=== PATIENT | female | born 1980 | race African-American/Black ===

== ENCOUNTER 2019-02-17 01:31 | Inpatient (IN) ==
[2019-02-17] MEDS ORDERED: INFLUENZA VIRUS VACCINE 0.5 ML SYRINGE IM ONE (03:10)
[2019-02-17] MEDS ORDERED: guaiFENesin/DM ER 600-30 MG TABLET PO PRN (03:37)
[2019-02-17] MEDS: SODIUM CHLORIDE 0.9% 1,000 ML IV SCH (05:09)
[2019-02-17] MEDS ORDERED: traZODone 50 MG TABLET PO PRN (05:21)
[2019-02-17] MEDS ORDERED: DEXTROSE 50% 25 GM/50 ML VIAL IV PRN (05:25)
[2019-02-17] MEDS ORDERED: GLUCAGON 1 MG VIAL IM PRN (05:25)
[2019-02-17 05:31] LABS: Apearance,Urine CLEAR (Clear); Bacteria,Urine Occasional /HPF (Few); Bilirubin,Urine Negative (Negative); Blood, Urine Negative (Negative); Glucose,Urine (UA) Negative (Negative); Ketones,Urine Negative (Negative); Mucus,Urine Occasional /LPF (Occasional); Nitrite,Urine Negative (Negative); Protein,Urine Negative; RBC,Urine 1 /HPF (0-4); Squamous Epithelial Cell,Urine Occasional /HPF (0-10); Urine Color Straw (Yellow); Urine Specific Gravity 1.006 (1.001-1.035); Urine Urobilinogen < 2.0 EU/DL (0.2-1.0); WBC,Urine <1 /HPF (0-6)
[2019-02-17] MEDS ORDERED: LORazepam 1 MG TABLET PO ONE (06:15)
[2019-02-17] MEDS: cefTRIAXone 1,000 MG in SYRINGE 1 EACH IV SCH (06:30)
[2019-02-17] MEDS: DOXYCYCLINE HYCLATE INJ 100 MG in SODIUM CHLORIDE 0.9% 100 ML IV SCH ×2 (06:35→17:23)
[2019-02-17 07:10] LABS: Basophils # 0.4 10*3/uL (0.0-0.2); Basophils % 1.6 % (0.0-0.8); Eosinophils # 0.4 10*3/uL (0.0-0.87); Eosinophils % 1.6 % (0.00-10.9); Hematocrit 36.3 VOL% (35.7-47.0); Hemoglobin 11.5 GM/DL (12.0-16.0); Lymphocytes # 3.8 10*3/uL (1.4-4.0); Lymphocytes % 14.4 % (21.3-54.2); Mean Corpuscular HGB Conc 31.7 GM/DL (32-36); Mean Platelet Volume 11.5 FL (9.6-12.0); Monocytes % 8.2 % (1.7-12.7); NRBC # 2.03 10*3/uL; Neutrophils % 57.2 % (38.7-73.9); Platelet Count 243 T/CUMM (130-400); Red Blood Count 4.08 MC/CUMM (3.8-5.5); Red Cell Distribution Width 18.4 % (9.3-17.3); White Blood Count 26.4 T/CUMM (4-12)
[2019-02-17] MEDS: ALBUTEROL/IPRATROPIUM 3 ML NEB RESP TX SCH ×3 (07:15→19:23)
[2019-02-17 07:45] LABS: Troponin I < 0.015 NG/ML (0.00-0.045)
[2019-02-17] MEDS ORDERED: ENOXAPARIN 40 MG/0.4 ML SYRINGE SUBCUT SCH (08:00)
[2019-02-17 08:09] LABS: Band Neutrophils 5 % (0-10); Eosinophils 1 % (0-10); Lymphocytes 17 % (20-55); Metamyelocytes 4 %; Myelocytes 3 %; Nucleated Red Blood Cells 4 (0-5); Segmented Neutrophils 64 % (50-85); Total Cells Counted 100
[2019-02-17 08:10] LABS: Hypochromasia 1+; Microcytosis 1+; Polychromasia Slight
[2019-02-17 08:11] LABS: Atypical Lymphocytes Few
[2019-02-17] MEDS: PANTOPRAZOLE 40 MG TABLET PO SCH (08:34)
[2019-02-17] MEDS: BENZTROPINE 1 MG TABLET PO SCH (08:34)
[2019-02-17] MEDS: amLODIPine 10 MG TABLET PO SCH (08:34)
[2019-02-17] MEDS: cloNIDine 0.1 MG TABLET PO SCH ×2 (08:34→20:18)
[2019-02-17] MEDS: INSULIN LISPRO 100 UNIT/ML SUBCUT SCH ×4 (08:35→20:18)
[2019-02-17 09:24] LABS: Alanine Aminotransferase 54 U/L (13-56); Albumin 3.4 G/DL (3.4-5.0); Alkaline Phosphatase 182 U/L (45-117); Aspartate Amino Transferase 50 U/L (0-37); Bilirubin,Total < 0.39 MG/DL (0.2-1.0); Blood Urea Nitrogen 10 MG/DL (7-18); Calcium 8.7 MG/DL (8.5-10.1); Estimated Glom Filtration Rate 188 ML/MIN; Glucose 288 MG/DL (74-106); Osmolality,Calculated 284.7 MOS/KG (273-304); Total Protein 7.6 G/DL (6.4-8.3)
[2019-02-17] MEDS ORDERED: APIXABAN 5 MG TABLET PO ONE (12:01)
[2019-02-17 13:18] LABS: Troponin I < 0.015 NG/ML (0.00-0.045)
[2019-02-17] MEDS: ONDANSETRON 4 MG/2 ML VIAL IV PRN (15:44)
[2019-02-17 20:12] LABS: Troponin I < 0.015 NG/ML (0.00-0.045)
[2019-02-17] MEDS ORDERED: LURASIDONE 60 MG TABLET PO SCH (21:00)
[2019-02-17] MEDS: LURASIDONE 40 MG TABLET PO SCH (22:51)
[2019-02-18] MEDS: ALBUTEROL/IPRATROPIUM 3 ML NEB RESP TX SCH ×4 (01:30→18:59)
[2019-02-18] MEDS ORDERED: cloNIDine 0.1 MG TABLET PO ONE (04:00)
[2019-02-18] MEDS: LOSARTAN 50 MG TABLET PO SCH (04:21)
[2019-02-18] MEDS: SODIUM CHLORIDE 0.9% 1,000 ML IV SCH ×2 (04:22→13:37)
[2019-02-18 05:24] LABS: Basophils # 0.1 10*3/uL (0.0-0.2); Basophils % 0.3 % (0.0-0.8); Eosinophils # 0.2 10*3/uL (0.0-0.87); Eosinophils % 0.8 % (0.00-10.9); Hematocrit 33.9 VOL% (35.7-47.0); Hemoglobin 10.4 GM/DL (12.0-16.0); Immature Granulocytes % 16.4 %; Immature Granulocytes Absolute 3.94 #; Lymphocytes # 3.6 10*3/uL (1.4-4.0); Mean Corpuscular HGB Conc 30.7 GM/DL (32-36); Mean Corpuscular Volume 90.2 FL (87-102); Mean Platelet Volume 9.7 FL (9.6-12.0); Monocytes % 9.1 % (1.7-12.7); NRBC # 1.12 10*3/uL; Neutrophils % 58.4 % (38.7-73.9); Platelet Count 362 T/CUMM (130-400); Red Blood Count 3.76 MC/CUMM (3.8-5.5); Red Cell Distribution Width 18.8 % (9.3-17.3)
[2019-02-18] MEDS: cefTRIAXone 1,000 MG in SYRINGE 1 EACH IV SCH (05:29)
[2019-02-18] MEDS: DOXYCYCLINE HYCLATE INJ 100 MG in SODIUM CHLORIDE 0.9% 100 ML IV SCH ×2 (05:31→18:28)
[2019-02-18 05:57] LABS: Alanine Aminotransferase 50 U/L (13-56); Alkaline Phosphatase 151 U/L (45-117); Aspartate Amino Transferase 40 U/L (0-37); Bilirubin,Total < 0.39 MG/DL (0.2-1.0); Blood Urea Nitrogen 10 MG/DL (7-18); Calcium 8.8 MG/DL (8.5-10.1); Estimated Glom Filtration Rate 188 ML/MIN; Glucose 244 MG/DL (74-106); Osmolality,Calculated 285.4 MOS/KG (273-304); Total Protein 7.3 G/DL (6.4-8.3)
[2019-02-18 06:09] LABS: Band Neutrophils 9 % (0-10); Eosinophils 1 % (0-10); Lymphocytes 21 % (20-55); Myelocytes 3 %; Nucleated Red Blood Cells 7 (0-5); Segmented Neutrophils 61 % (50-85); Total Cells Counted 100
[2019-02-18 06:11] LABS: Anisocytosis 1+; Platelet Estimate Adequate; Target Cells Few
[2019-02-18] MEDS ORDERED: hydrALAZINE 20 MG/1 ML VIAL IV PRN (06:36)
[2019-02-18] MEDS: cloNIDine 0.1 MG TABLET PO SCH ×3 (08:51→21:36)
[2019-02-18] MEDS: PANTOPRAZOLE 40 MG TABLET PO SCH (08:52)
[2019-02-18] MEDS: amLODIPine 10 MG TABLET PO SCH (08:52)
[2019-02-18] MEDS: BENZTROPINE 1 MG TABLET PO SCH (08:52)
[2019-02-18] MEDS ORDERED: amLODIPine 10 MG TABLET PO SCH (09:00)
[2019-02-18] MEDS ORDERED: BENZTROPINE 1 MG TABLET PO SCH (09:00)
[2019-02-18] MEDS: GABAPENTIN 600 MG TABLET PO SCH ×3 (09:00→21:40)
[2019-02-18] MEDS: INSULIN LISPRO 100 UNIT/ML SUBCUT SCH ×4 (11:30→21:45)
[2019-02-18] MEDS: carvediloL 12.5 MG TABLET PO SCH ×2 (13:36→21:35)
[2019-02-18] MEDS: ONDANSETRON 4 MG/2 ML VIAL IV PRN (13:39)
[2019-02-18] MEDS ORDERED: INSULIN GLARGINE 100 UNIT/ML SUBCUT SCH (21:00)
[2019-02-18] MEDS: LURASIDONE 40 MG TABLET PO SCH (21:35)
[2019-02-18] MEDS: ENOXAPARIN 150 MG/ML SYRINGE SUBCUT SCH (21:36)
[2019-02-18] MEDS: DOCUSATE SODIUM 100 MG CAPSULE PO SCH (23:53)
[2019-02-19] MEDS: ALBUTEROL/IPRATROPIUM 3 ML NEB RESP TX SCH ×4 (00:05→19:00)
[2019-02-19] MEDS: SODIUM CHLORIDE 0.9% 1,000 ML IV SCH ×2 (01:45→15:08)
[2019-02-19] MEDS: cefTRIAXone 1,000 MG in SYRINGE 1 EACH IV SCH (04:55)
[2019-02-19] MEDS: DOXYCYCLINE HYCLATE INJ 100 MG in SODIUM CHLORIDE 0.9% 100 ML IV SCH ×2 (05:02→17:02)
[2019-02-19 05:42] LABS: Basophils # 0.3 10*3/uL (0.0-0.2); Basophils % 1.4 % (0.0-0.8); Eosinophils # 0.1 10*3/uL (0.0-0.87); Eosinophils % 0.6 % (0.00-10.9); Hematocrit 32.3 VOL% (35.7-47.0); Hemoglobin 10.1 GM/DL (12.0-16.0); Immature Granulocytes % 15.8 %; Lymphocytes # 3.6 10*3/uL (1.4-4.0); Lymphocytes % 15.8 % (21.3-54.2); Mean Corpuscular HGB Conc 31.3 GM/DL (32-36); Mean Corpuscular Volume 90.7 FL (87-102); Mean Platelet Volume 9.7 FL (9.6-12.0); Monocytes % 10.4 % (1.7-12.7); NRBC # 0.97 10*3/uL; Platelet Count 327 T/CUMM (130-400); Red Blood Count 3.56 MC/CUMM (3.8-5.5); Red Cell Distribution Width 18.3 % (9.3-17.3); White Blood Count 22.8 T/CUMM (4-12)
[2019-02-19 06:16] LABS: Band Neutrophils 6 % (0-10); Eosinophils 2 % (0-10); Lymphocytes 18 % (20-55); Metamyelocytes 3 %; Myelocytes 3 %; Nucleated Red Blood Cells 4 (0-5); Promyelocytes 1 %; Segmented Neutrophils 59 % (50-85); Total Cells Counted 100
[2019-02-19 06:17] LABS: Anisocytosis 1+; Hypochromasia 1+; Microcytosis 1+; Polychromasia Slight
[2019-02-19 06:18] LABS: Atypical Lymphocytes Few; Platelet Estimate Normal
[2019-02-19 06:35] LABS: Calcium 8.4 MG/DL (8.5-10.1); Osmolality,Calculated 283.7 MOS/KG (273-304)
[2019-02-19 08:31] LABS: Albumin 3.3 G/DL (3.4-5.0); Bilirubin,Total 0.5 MG/DL (0.2-1.0); Calcium 8.6 MG/DL (8.5-10.1); Osmolality,Calculated 283.5 MOS/KG (273-304); Total Protein 8.1 G/DL (6.4-8.3)
[2019-02-19] MEDS: LOSARTAN 50 MG TABLET PO SCH (09:12)
[2019-02-19] MEDS: ENOXAPARIN 150 MG/ML SYRINGE SUBCUT SCH ×2 (09:12→21:32)
[2019-02-19] MEDS: INSULIN LISPRO 100 UNIT/ML SUBCUT SCH ×4 (09:12→21:32)
[2019-02-19] MEDS: BENZTROPINE 1 MG TABLET PO SCH (09:12)
[2019-02-19] MEDS: cloNIDine 0.1 MG TABLET PO SCH ×3 (09:12→21:30)
[2019-02-19] MEDS: carvediloL 12.5 MG TABLET PO SCH (09:12)
[2019-02-19] MEDS: PANTOPRAZOLE 40 MG TABLET PO SCH (09:12)
[2019-02-19] MEDS: GABAPENTIN 600 MG TABLET PO SCH ×3 (09:12→21:30)
[2019-02-19] MEDS: DOCUSATE SODIUM 100 MG CAPSULE PO SCH ×2 (09:13→21:30)
[2019-02-19] MEDS ORDERED: FUROSEMIDE 40 MG/4 ML VIAL IV ONE (14:14)
[2019-02-19] MEDS ORDERED: ACETAMINOPHEN 325 MG TABLET PO PRN (16:33)
[2019-02-19] MEDS ORDERED: INSULIN GLARGINE 100 UNIT/ML SUBCUT SCH (17:00)
[2019-02-19] MEDS: carvediloL 25 MG TABLET PO SCH (21:30)
[2019-02-19] MEDS: LURASIDONE 40 MG TABLET PO SCH (21:31)
[2019-02-19] MEDS ORDERED: DOCUSATE SODIUM 100 MG CAPSULE PO SCH (23:31)
[2019-02-20] MEDS: ALBUTEROL/IPRATROPIUM 3 ML NEB RESP TX SCH ×3 (00:15→12:00)
[2019-02-20] MEDS: cefTRIAXone 1,000 MG in SYRINGE 1 EACH IV SCH (04:57)
[2019-02-20] MEDS: DOXYCYCLINE HYCLATE INJ 100 MG in SODIUM CHLORIDE 0.9% 100 ML IV SCH (05:06)
[2019-02-20 05:14] LABS: Basophils # 0.1 10*3/uL (0.0-0.2); Basophils % 0.4 % (0.0-0.8); Eosinophils # 0.3 10*3/uL (0.0-0.87); Eosinophils % 1.6 % (0.00-10.9); Hematocrit 31.7 VOL% (35.7-47.0); Immature Granulocytes Absolute 3.59 #; Lymphocytes # 3.9 10*3/uL (1.4-4.0); Lymphocytes % 19.3 % (21.3-54.2); Mean Corpuscular HGB Conc 31.5 GM/DL (32-36); Mean Corpuscular Volume 88.1 FL (87-102); Mean Platelet Volume 9.8 FL (9.6-12.0); Monocytes % 10.2 % (1.7-12.7); Neutrophils % 50.5 % (38.7-73.9); Platelet Count 320 T/CUMM (130-400); Red Cell Distribution Width 17.8 % (9.3-17.3)
[2019-02-20 05:30] LABS: Albumin 3.1 G/DL (3.4-5.0); Bilirubin,Total 0.8 MG/DL (0.2-1.0); Calcium 8.8 MG/DL (8.5-10.1); Osmolality,Calculated 282.5 MOS/KG (273-304); Total Protein 7.5 G/DL (6.4-8.3)
[2019-02-20 05:35] LABS: Band Neutrophils 7 % (0-10); Hypochromasia 1+; Lymphocytes 23 % (20-55); Nucleated Red Blood Cells 1 (0-5); Platelet Estimate Adequate; Segmented Neutrophils 63 % (50-85); Total Cells Counted 100
[2019-02-20 05:36] LABS: Atypical Lymphocytes Few; Microcytosis 1+
[2019-02-20] MEDS: GABAPENTIN 600 MG TABLET PO SCH (09:09)
[2019-02-20] MEDS: cloNIDine 0.1 MG TABLET PO SCH ×2 (09:09→09:10)
[2019-02-20] MEDS: carvediloL 25 MG TABLET PO SCH (09:09)
[2019-02-20] MEDS: BENZTROPINE 1 MG TABLET PO SCH (09:09)
[2019-02-20] MEDS: PANTOPRAZOLE 40 MG TABLET PO SCH (09:10)
[2019-02-20] MEDS: DOCUSATE SODIUM 100 MG CAPSULE PO SCH (09:10)
[2019-02-20] MEDS: INSULIN LISPRO 100 UNIT/ML SUBCUT SCH ×2 (09:10→12:50)
[2019-02-20] MEDS: ENOXAPARIN 150 MG/ML SYRINGE SUBCUT SCH (09:10)
[2019-02-20] MEDS: LOSARTAN 50 MG TABLET PO SCH (09:38)
[2019-02-20 10:20] VITALS: BP 174/98
[2019-02-20] MEDS ORDERED: POTASSIUM CHLORIDE 20 MEQ TABLET PO ONE (10:24)
== END 2019-02-20 14:09 | disposition home or self-care (01) | DRG 194 ==
LOC: N.4E 02:47 → SUATTDRO 02:47
PROVIDERS: ADMIT Internal Medicine; ATTEND Internal Medicine